=== PATIENT | female | born 1970 | race Caucasian/White ===

== ENCOUNTER → 2024-04-02 | Emergency (ER) | payer MEDICAID, OTHER ==
[~2024-04-02] VITALS: Ht 152.4 cm; Wt 66.4 kg
[~2024-04-02] MED LIST: ACET-2247 PO; CALC1TAB15 PO; IBUP-1492 PO; LIDO700A15 TP
[2024-04-02 07:34] VITALS: TEMP 98.3
[2024-04-02] MEDS: KETOROLAC TROMETHAMINE 30 MG/ML VIAL IM ONE (07:41)
[2024-04-02] MEDS: ACETAMINOPHEN 500 MG TABLET PO ONE (07:41)
[2024-04-02] MEDS: LIDOCAINE 5% TRANSDERMAL PATCH TD ONE (07:42)
[2024-04-02 09:20] VITALS: BP 121/61; PULSE 79; RESP 16; O2SAT 98
== END | disposition still patient (30) ==
LOC: EMS 06:41
DX: M54.50 Low back pain, unspecified (principal); E11.9 Type 2 diabetes mellitus without complications; E78.00 Pure hypercholesterolemia, unspecified; Z90.710 Acquired absence of both cervix and uterus
CPT/HCPCS: 99283; 96372; J1885